=== PATIENT | male | born 1995 | race Hispanic/Latino ===

== ENCOUNTER 2024-11-27 11:57 | Outpatient (CLI) | payer BC | END 2024-11-27 11:58 | disposition home or self-care (01) | LOC: LABBT 11:57 | PROVIDERS: ATTEND Urology | DX: Z01.812 Encounter for preprocedural laboratory examination (principal); N20.1 Calculus of ureter | CPT/HCPCS: 87086 ==

== ENCOUNTER 2024-12-04 09:43 | Day surgery (SDC) | payer BC ==
[2024-11-27 12:07] VITALS: BMI 22.8
[2024-12-04] MEDS ORDERED: CEFAZOLIN 2 GM VIAL ONE (11:15)
[2024-12-04] MEDS ORDERED: fentaNYL PF 100 MCG/2 ML SYRINGE ONE (11:41)
[2024-12-04] MEDS ORDERED: PROPOFOL 20 ML ONE ×2 (11:42→12:14)
[2024-12-04] MEDS ORDERED: Rocuronium Bromide 10 MG/ML (10ML VIAL) ONE (11:42)
[2024-12-04] MEDS ORDERED: Ondansetron PF 4 MG/2 ML Vial ONE (12:05)
[2024-12-04] MEDS ORDERED: SUGAMMADEX SODIUM 200 MG/2 ML VIAL ONE (12:44)
== END 2024-12-04 15:30 | disposition home or self-care (01) ==
LOC: SDC 09:43
PROVIDERS: ATTEND Urology
PROC: 0TC78ZZ Extirpation of Matter from Left Ureter, Via Natural or Artificial Opening Endoscopic (ICD-10-PCS; principal; 2024-12-04)
DX: N20.1 Calculus of ureter (principal)
CPT/HCPCS: 74420; C1758; C1769; C2617; J1100; J2250; J2405; J2704; Q9967